=== PATIENT | male | born 1970 | race Caucasian/White ===

== ENCOUNTER → 2019-11-30 10:54 | Outpatient (BNVA) | payer MEDICARE, MEDICAID, SELFPAY | PROVIDERS: Family Provider Internal Medicine; PCP Internal Medicine; Visit Provider Nurse Practitioner Psychiatric/Mental Health | DX: F98.4 Stereotyped movement disorders (principal); F73 Profound intellectual disabilities; Q90.9 Down syndrome, unspecified | CPT/HCPCS: 99214 ==

== ENCOUNTER → 2020-01-11 08:15 | Outpatient (BNVA) | payer MEDICARE, MEDICAID, SELFPAY | PROVIDERS: Family Provider Internal Medicine; PCP Internal Medicine; Visit Provider Nurse Practitioner Psychiatric/Mental Health | DX: F98.4 Stereotyped movement disorders (principal); F73 Profound intellectual disabilities; Q90.9 Down syndrome, unspecified | CPT/HCPCS: 99214 ==

== ENCOUNTER → 2020-02-08 07:38 | Outpatient (BNVA) | payer MEDICARE, MEDICAID, SELFPAY | PROVIDERS: Family Provider Internal Medicine; PCP Internal Medicine; Visit Provider Nurse Practitioner Psychiatric/Mental Health | DX: F98.4 Stereotyped movement disorders (principal); F73 Profound intellectual disabilities; Q90.9 Down syndrome, unspecified | CPT/HCPCS: 99214 ==

== ENCOUNTER → 2020-04-08 07:43 | Outpatient (BNVA) | payer MEDICARE, MEDICAID, SELFPAY | PROVIDERS: Family Provider Internal Medicine; PCP Internal Medicine; Visit Provider Nurse Practitioner Psychiatric/Mental Health | DX: F98.4 Stereotyped movement disorders (principal); F73 Profound intellectual disabilities; Q90.9 Down syndrome, unspecified; Z79.899 Other long term (current) drug therapy | CPT/HCPCS: 99214 ==

== ENCOUNTER → 2020-07-01 07:55 | Outpatient (BNVA) | payer MEDICARE, MEDICAID, SELFPAY | PROVIDERS: Family Provider Internal Medicine; PCP Internal Medicine; Visit Provider Nurse Practitioner Psychiatric/Mental Health | DX: F98.4 Stereotyped movement disorders (principal); F73 Profound intellectual disabilities; Q90.9 Down syndrome, unspecified; F43.12 Post-traumatic stress disorder, chronic | CPT/HCPCS: 99214 ==

== ENCOUNTER → 2020-09-29 08:02 | Outpatient (BNVA) | payer MEDICARE, MEDICAID, SELFPAY | PROVIDERS: Family Provider Internal Medicine; PCP Internal Medicine; Visit Provider Nurse Practitioner Psychiatric/Mental Health | DX: F98.4 Stereotyped movement disorders (principal); F73 Profound intellectual disabilities; Q90.9 Down syndrome, unspecified | CPT/HCPCS: 99213 ==

== ENCOUNTER 2020-12-15 20:57 | Inpatient (IN) | payer MEDICARE, MEDICAID, SELFPAY ==
[2020-12-15 20:58] VITALS: BP 127/48; PULSE 88; RESP 28; TEMP 36.9; O2SAT 86; BMI 36.6
--- NOTE | 2020-12-15 21:03 | XRR_ITS ---
PROCEDURE INFORMATION: Exam: XR Chest Exam date and time: 12/15/2020 9:29 PM Age: 50 years old Clinical indication: Condition or disease; Other: Chf; Fever; Additional info: SOB TECHNIQUE: Imaging protocol: XR of the chest Views: 1 view. COMPARISON: CR Chest 1 [place] [id number] 11/02/2014 11:23 AM FINDINGS: Lungs: There is extensive consolidation of the right lung consistent with a pneumonia. The left lung is clear. Pleural spaces: Unremarkable. No pleural effusion. No pneumothorax. Heart/Mediastinum: The cardiac silhouette is enlarged but unchanged. Bones/joints: Unremarkable. XR/XR chest 1V portable [id number] IMPRESSION: 1. Extensive consolidation of the right lung consistent with pneumonia. 2. Stable cardiomegaly.
--- NOTE | 2020-12-15 21:05 | ED_ITS ---
HPI - SOB/Dyspnea General: Chief Complaint: Fever Stated Complaint: FEVER Time Seen by Provider: 12/15/20 20:57 Source: EMS Mode of arrival: EMS Limitations: altered mental status History of Present Illness: HPI Narrative: 50-year-old male who has history of Down syndrome and is nonverbal and blind. He is here from a local [place] [facility] and has had increased unresponsiveness and shortness of breath. Patient is on 4 L currently and is 96%. No history is available from patient. He has been afebrile. No known sick contacts. Review of Systems General: Reports: ROS unobtainable due to mental status Resp: Reports: dyspnea PFSH ED PFSH: Medical History Blindness Down's syndrome Profound intellectual disabilities Stereotypic movement disorder with self-injurious behavior Ventricular septal defect Social History Smoking and tobacco status: never smoked Physical Exam Const: COMMON NORMALS: negative for patient oriented x3 GENERAL APPEARANCE: ill appearing HENMT: COMMON NORMALS: normocephalic and atraumatic HEAD & SCALP: normocephalic and atraumatic Eye: COMMON NORMALS: Equal, round and reactive pupils present and EOMs intact bilaterally PUPIL: Yes Equal, round and reactive pupils present Neck/C-Spine: COMMON NORMALS: full ROM and supple Chest: COMMONS NORMALS: normal inspection of the chest and normal palpation of entire chest wall Resp: COMMON NORMALS: normal respiratory effort, No retractions and No use of accessory muscles AUSCULTATION: rales Cardio: COMMON NORMALS: regular rate, regular rhythm and No murmurs present (Cardio) RATE: regular rate RHYTHM: regular rhythm HEART SOUNDS: Murmur heart sound present systolic GI: COMMON NORMALS: Normal to inspection, nondistended, normoactive bowel sounds present, Soft to palpation, non-tender and no masses PALPATION: Yes Soft to palpation Extremity: COMMON NORMALS: normal to inspection and full ROM Neuro: COMMON NORMALS: negative for patient oriented x3 Psych: COMMON NORMALS: negative for mental status grossly normal, negative for Normal thought process present, negative for cooperative and negative for normal affect THOUGHT PROCESS: abnormal Skin: COMMON NORMALS: no rashes or lesions noted and no wounds GENERAL SKIN EXAM: no rashes or lesions noted Course Vital Signs: Vital signs: Vital Signs Temperature 98.4 F 12/15/20 20:58 Pulse Rate 88 12/15/20 20:58 Respiratory Rate 28 H 12/15/20 20:58 Blood Pressure 127/48 12/15/20 20:58 Pulse Oximetry 86 L 12/15/20 20:58 MDM - SOB/Dyspnea MDM Narrative: Medical decision making narrative: Patient presents here with dyspnea is found to have a pneumonia here. Patient's vital signs here been normal no signs of septic shock. Patient started on IV antibiotics. Spoke to hospitalist and will admit at this time. Lab Data: Labs: Lab Results 12/15/20 12/15/20 12/15/20 Range/Units 21:09 21:09 21:09 WBC 16.5 H (4.0-10.0) 10^3/ uL RBC 3.22 L (4.1-5.3) 10^6/u L Hgb 11.4 L (11.7-16.6) g/dL Hct 34.4 L (42.0-52.0) % MCV 106.8 H (80-94) fL MCH 35.4 H (28.0-34.0) pg MCHC 33.1 (30.0-36.0) g/dL RDW 13.3 (12.1-15.1) % Plt Count 180 (130-400) 10^3/c mm MPV 9.3 (7.4-10.4) fL Neut % (Auto) 93.6 % Lymph % (Auto) 3.4 % [place] % (Auto) 1.9 % Eos % (Auto) 0.1 % Baso % (Auto) 0.3 % Neut # (Auto) 15.39 H (1.8-7.7) 10^3/u L Lymph # (Auto) 0.6 L (0.8-4.8) 10^3/u L [place] # (Auto) 0.3 (0.2-0.9) 10^3/u L Eos # (Auto) 0.0 (0.0-0.8) 10^3/u L Baso # (Auto) 0.1 (0.0-0.1) 10^3/u L Nucleated RBC % (a uto) 0 % Nucleated RBCs # 0.0 /100WBC PT 14.40 (12.1-14.9) SECO NDS INR 1.09 (0.8-1.2) Specimen Type Sample Site ABG pH (7.35-7.45) ABG pCO2 (35-45) mmHg ABG pO2 (80.0-100.0) mmH g ABG HCO3 (22-26) mmol/L ABG Base Excess (-2.0-2.0) mmol/ L Benton Test Hematocrit (42-52) % Hgb O2 Saturation (95-100) % Carboxyhemoglobin (0.4-20.1) %THgb Methemoglobin (0.4-1.5) % Total Hemoglobin (14-18) g/dL O2 Delivery Device O2 Liters/Min % Bill Poster Installer ID Sodium 139 (136-145) mmol/L Potassium 3.9 (3.5-5.1) mmol/L Chloride 103 (98-107) mmol/L Carbon Dioxide 29 (22-29) mmol/L Anion Gap 10.9 (5-19) BUN 16 (6-20) mg/dL Creatinine 1.0 (0.7-1.2) mg/dL GFR Calculation 78.8 L (90-130) mL/min Glucose 130 H (65-115) mg/dL Calculated Osmolal ity 291 (285-295) mOsm/k g Lactic Acid (0.5-2.2) mmol/L Calcium 7.7 L (8.5-10.5) mg/dL Total Bilirubin 0.2 (0.15-1.2) mg/dL AST 21 (0-40) U/L ALT 17 (0-41) U/L Alkaline Phosphata se 95 (40-130) IU/L Troponin T Baselin e (0-15) ng/L NT-Pro-B Natriuret Pep 3104 H (0-125) pg/mL Total Protein 5.7 L (6.6-8.7) g/dL Albumin 3.0 L (3.5-5.2) g/dL Globulin 2.7 (1.3-4.6) g/dL SARS-CoV-2 Ag (Rap id) (Negative) 12/15/20 12/15/20 12/15/20 Range/Units 21:09 21:20 21:45 WBC (4.0-10.0) 10^3/ uL RBC (4.1-5.3) 10^6/u L Hgb (11.7-16.6) g/dL Hct (42.0-52.0) % MCV (80-94) fL MCH (28.0-34.0) pg MCHC (30.0-36.0) g/dL RDW (12.1-15.1) % Plt Count (130-400) 10^3/c mm MPV (7.4-10.4) fL Neut % (Auto) % Lymph % (Auto) % [place] % (Auto) % Eos % (Auto) % Baso % (Auto) % Neut # (Auto) (1.8-7.7) 10^3/u L Lymph # (Auto) (0.8-4.8) 10^3/u L [place] # (Auto) (0.2-0.9) 10^3/u L Eos # (Auto) (0.0-0.8) 10^3/u L Baso # (Auto) (0.0-0.1) 10^3/u L Nucleated RBC % (a uto) % Nucleated RBCs # /100WBC PT (12.1-14.9) SECO NDS INR (0.8-1.2) Specimen Type Arterial Sample Site Radial, right ABG pH 7.38 (7.35-7.45) ABG pCO2 54.6 H (35-45) mmHg ABG pO2 67.4 L (80.0-100.0) mmH g ABG HCO3 31.9 H (22-26) mmol/L ABG Base Excess 5.4 H (-2.0-2.0) mmol/ L Benton Test Pos Hematocrit 35.8 L (42-52) % Hgb O2 Saturation 90.5 L (95-100) % Carboxyhemoglobin < 0.0 L (0.4-20.1) %THgb Methemoglobin 1.0 (0.4-1.5) % Total Hemoglobin 11.7 L (14-18) g/dL O2 Delivery Device Nc O2 Liters/Min 4.0 % Bill Poster Installer ID [email or web address] Sodium (136-145) mmol/L Potassium (3.5-5.1) mmol/L Chloride (98-107) mmol/L Carbon Dioxide (22-29) mmol/L Anion Gap (5-19) BUN (6-20) mg/dL Creatinine (0.7-1.2) mg/dL GFR Calculation (90-130) mL/min Glucose (65-115) mg/dL Calculated Osmolal ity (285-295) mOsm/k g Lactic Acid 0.7 (0.5-2.2) mmol/L Calcium (8.5-10.5) mg/dL Total Bilirubin (0.15-1.2) mg/dL AST (0-40) U/L ALT (0-41) U/L Alkaline Phosphata se (40-130) IU/L Troponin T Baselin e 33 H (0-15) ng/L NT-Pro-B Natriuret Pep (0-125) pg/mL Total Protein (6.6-8.7) g/dL Albumin (3.5-5.2) g/dL Globulin (1.3-4.6) g/dL SARS-CoV-2 Ag (Rap id) (Negative) 12/15/20 Range/Units 21:45 WBC (4.0-10.0) 10^3/ uL RBC (4.1-5.3) 10^6/u L Hgb (11.7-16.6) g/dL Hct (42.0-52.0) % MCV (80-94) fL MCH (28.0-34.0) pg MCHC (30.0-36.0) g/dL RDW (12.1-15.1) % Plt Count (130-400) 10^3/c mm MPV (7.4-10.4) fL Neut % (Auto) % Lymph % (Auto) % [place] % (Auto) % Eos % (Auto) % Baso % (Auto) % Neut # (Auto) (1.8-7.7) 10^3/u L Lymph # (Auto) (0.8-4.8) 10^3/u L [place] # (Auto) (0.2-0.9) 10^3/u L Eos # (Auto) (0.0-0.8) 10^3/u L Baso # (Auto) (0.0-0.1) 10^3/u L Nucleated RBC % (a uto) % Nucleated RBCs # /100WBC PT (12.1-14.9) SECO NDS INR (0.8-1.2) Specimen Type Sample Site ABG pH (7.35-7.45) ABG pCO2 (35-45) mmHg ABG pO2 (80.0-100.0) mmH g ABG HCO3 (22-26) mmol/L ABG Base Excess (-2.0-2.0) mmol/ L Benton Test Hematocrit (42-52) % Hgb O2 Saturation (95-100) % Carboxyhemoglobin (0.4-20.1) %THgb Methemoglobin (0.4-1.5) % Total Hemoglobin (14-18) g/dL O2 Delivery Device O2 Liters/Min % Bill Poster Installer ID Sodium (136-145) mmol/L Potassium (3.5-5.1) mmol/L Chloride (98-107) mmol/L Carbon Dioxide (22-29) mmol/L Anion Gap (5-19) BUN (6-20) mg/dL Creatinine (0.7-1.2) mg/dL GFR Calculation (90-130) mL/min Glucose (65-115) mg/dL Calculated Osmolal ity (285-295) mOsm/k g Lactic Acid (0.5-2.2) mmol/L Calcium (8.5-10.5) mg/dL Total Bilirubin (0.15-1.2) mg/dL AST (0-40) U/L ALT (0-41) U/L Alkaline Phosphata se (40-130) IU/L Troponin T Baselin e (0-15) ng/L NT-Pro-B Natriuret Pep (0-125) pg/mL Total Protein (6.6-8.7) g/dL Albumin (3.5-5.2) g/dL Globulin (1.3-4.6) g/dL SARS-CoV-2 Ag (Rap id) Negative (Negative) Imaging Data^: CXR: Attestation: I personally reviewed and interpreted this imaging study as follows: My impression: right sided pneumonia EKG Data^: EKG 1: Attestation: I personally reviewed and interpreted this EKG as follows: EKG Interpretation Date: 12/15/20 EKG interpretation time: 21:11 Interpretation: nsr hr [address] or t wave banormalities qrs 104 qtc 417 Discharge Plan Discharge Patient Disposition: Admitted As Inpatient Clinical Impression: Community acquired pneumonia Qualifiers: Laterality: right Lung location: unspecified part of lung Qualified Code(s): J18.9 - Pneumonia, unspecified organism Condition: Stable Coding Level of Care Code ED Inspector Tester Sorter for Chg Fwd Exam Comprehensive
[2020-12-15 21:20] LABS: Basophils # 0.1 10^3/uL (0.0-0.1); Basophils % 0.3 %; Eosinophils % 0.1 %; Hematocrit 34.4 % (42.0-52.0); Hemoglobin 11.4 g/dL (11.7-16.6); Lymphocytes # 0.6 10^3/uL (0.8-4.8); Lymphocytes % 3.4 %; Mean Corpuscular HGB Conc 33.1 g/dL (30.0-36.0); Mean Corpuscular Hemoglobin 35.4 pg (28.0-34.0); Mean Corpuscular Volume 106.8 fL (80-94); Mean Platelet Volume 9.3 fL (7.4-10.4); Monocytes # 0.3 10^3/uL (0.2-0.9); Monocytes % 1.9 %; Neutrophils # 15.39 10^3/uL (1.8-7.7); Neutrophils % 93.6 %; Nucleated Red Blood Cells % 0 %; Platelet Count 180 10^3/cmm (130-400); Red Blood Count 3.22 10^6/uL (4.1-5.3); Red Cell Distribution Width 13.3 % (12.1-15.1); White Blood Count 16.5 10^3/uL (4.0-10.0)
--- NOTE | 2020-12-15 21:28 | PC.NURSE ---
EKG taken and given to Dr. Samano
[2020-12-15 21:31] LABS: INR 1.09 (0.8-1.2)
--- NOTE | 2020-12-15 21:32 | PC.NURSE ---
CHRISTIE Villalobos house caregiver now in room with patient
[2020-12-15 21:38] LABS: Troponin(5th) Baseline 33 ng/L (0-15)
[2020-12-15] MEDS: sodium chloride 0.9% 1,000 ML 999 ML IV (21:46)
[2020-12-15 21:47] LABS: Lactic Sepsis W/Reflex 0.7 mmol/L (0.5-2.2)
[2020-12-15 21:52] LABS: ABG PCO2 54.6 mmHg (35-45); ABG PH Result 7.38 (7.35-7.45); Arterial Blood Gas Hematocrit 35.8 % (42-52); Base Excess ABG 5.4 mmol/L (-2.0-2.0); Blood Gas Allen Test Pos; Blood Gas Sample Site Radial, right; Blood Gas Sample Type Arterial; Carboxyhemoglobin < 0.0 %THgb (0.4-20.1); HCO3 ABG 31.9 mmol/L (22-26); HGB O2 Sat 90.5 % (95-100); Oxygen Device NC; PO2 ABG 67.4 mmHg (80.0-100.0); Total Hemoglobin 11.7 g/dL (14-18)
[2020-12-15 22:02] LABS: Alanine Aminotransferase 17 U/L (0-41); Alkaline Phosphatase 95 IU/L (40-130); Anion Gap 10.9 (5-19); Aspartate Amino Transferase 21 U/L (0-40); Blood Urea Nitrogen 16 mg/dL (6-20); Calcium 7.7 mg/dL (8.5-10.5); Carbon Dioxide 29 mmol/L (22-29); Chloride 103 mmol/L (98-107); Globulin 2.7 g/dL (1.3-4.6); Glomerular Filtration Rate 78.8 mL/min (90-130); Glucose 130 mg/dL (65-115); NT Pro B Type Natriuretic Pept 3104 pg/mL (0-125); Osmolality Calculated 291 mOsm/kg (285-295); Potassium 3.9 mmol/L (3.5-5.1); Sodium 139 mmol/L (136-145); Total Bilirubin 0.2 mg/dL (0.15-1.2); Total Protein 5.7 g/dL (6.6-8.7)
[2020-12-15 22:22] LABS: SARS Covid-2 Antigen Negative (Negative)
[2020-12-15] MEDS: piperacillin-tazobactam 3.375 GM in sodium chloride 0.9% (plus) 50 ML IV (22:39)
[2020-12-15 22:42] VITALS: BP 130/66; PULSE 89; RESP 20; O2SAT 93
[2020-12-15] MEDS: vancomycin 1,000 MG in sodium chloride 0.9% 250 ML 250 MG IV (22:55)
[2020-12-15 23:02] VITALS: BP 170/107; PULSE 87; RESP 26; O2SAT 92
--- NOTE | 2020-12-15 23:03 | ECG_ITS ---
[facility] Test Date: 2020-12-15 Pat Name: John Min Department: Room: 260 Gender: Male Truss Builder: : [id number] Requested By: Koko Samano Order Number: [id number] Darrell MD: Usama Llanos M.D. Measurements Intervals [place] Rate: 83 P: 68 RI: 177 QRS: -24 QRSD: 107 T: 57 QT: 372 QTc: 438 Interpretive Statements SINUS RHYTHM POSSIBLE LEFT ATRIAL ENLARGEMENT [-0.1mV P WAVE IN V1/V2] BORDERLINE LEFT AXIS DEVIATION [QRS AXIS < -20] INCOMPLETE RIGHT BUNDLE BRANCH BLOCK [90+ ms QRS DURATION, TERMINAL R IN V1/V2, 40+ ms S IN I/aVL/V4/V5/V6] ST DEVIATION AND MODERATE T-WAVE ABNORMALITY, CONSIDER ANTERIOR ISCHEMIA [-0.1+ mV T WAVE IN V3/V4] Compared to ECG 11/02/2014 12:09:08 Sinus bradycardia no longer present T-wave abnormality still present Possible ischemia still present Electronically Signed On 12-16-2020 20:21:38 CDT by Usama Llanos M.D. [id number] pa
[2020-12-15 23:11] LABS: Troponin 5 2HR 33.59 ng/L (0-15); Troponin 5 2HR Delta 0.59 ABS# (0-10)
[2020-12-15 23:43] VITALS: BP 119/71; PULSE 88; RESP 22; O2SAT 92
[2020-12-16] VITALS (14 sets, daily range): BP systolic 108–144; BP diastolic 59–80; PULSE 81–92; RESP 18–22; TEMP 36.9–38; O2SAT 90–94
--- NOTE | 2020-12-16 00:14 | PC.NURSE ---
report called to Thi MEDINA on med-surg at 1217
--- NOTE | 2020-12-16 01:29 | P.HP_ITS ---
Providers/Chief Complaint Admitting Physician: Katelyn Walton Primary Care Provider: Jovanni Villalobos DO Chief Complaint: FEVER History of Present Illness 50-year-old male with a past medical history significant for down syndrome with severe cognitive delay, Alzheimer dementia, congenital heart disease in the form of VSD, moderate pulmonary stenosis, chronic right bundle branch block, severe pulmonary hypertension with last known PA pressures of 60, bilateral cataracts with blindness, hypertension, hypothyroidism who is a resident of a [facility] presenting to ER with changes in activity level from baseline as well as hypoxia. Patients is not able to provide any history. At baseline patient is non-verbal. He requires 24/7 care. Per per pet care attendant yesterday he was not active as he normally is. Noted he normally walks with assistance however for the most part laid in bed. Noted to have mild wheezing at which point she checked his oxygen saturation which was around 68%. He is not chronically on oxygen however states he is at baseline around 85%. No recent fever, chills, haylee sea or vomiting. No productive cough. No abdominal discomfort, diarrhea or constipation. After noting his very low oxygen saturation EMS was called and he was placed on supplemental oxygen on route to hospital. Upon arrival his laboratory work up showed a WBC of 16.5, hgb of 11.4, hct of 34.4 and plt count of 180. Sodium of 139, potassium of 3.9, chloride of 103, bicarbonate of 29, BUN of 16, and a creatinine of 1.0. Troponin-t of 33 -> 33.59, Probnp of 31.04, [id number] negative. ABG showed a PH of 7.38, Pco2 of 54.6, pO2 of 67.4, HCO3 of 31.9 while on 4L of o2 via NC. Chest x-ray was performed which appeared to have right sided infiltrates. Patient was then started on vancomycin and zosyn and admitted. Review of Systems General: Reports: ROS unobtainable due to mental status Medications/Allergies Home Medications Medication Instructions Recorded Confirmed Last Taken Type acetaminophen 325 mg tablet 650 mg PO Q4H PRN tab 11/30/19 12/15/20 Unknown History albuterol sulfate 90 mcg/actuation 1 puff INHALATION Q6H PRN gm 11/30/19 12/15/20 Unknown History aerosol inhaler betamethasone dipropionate 0.05 % 1 applic TOPICAL BID PRN 11/30/19 12/15/20 Unknown History topical cream fluticasone propionate 50 2 spray INTRANASAL DAILY@0800 11/30/19 12/15/20 12/15/20 History mcg/actuation nasal spray,suspension guaifenesin 100 mg/5 mL oral liquid 200 mg PO Q6H PRN ml 11/30/19 12/15/20 12/15/20 History ibuprofen 200 mg tablet 200 mg PO Q6H PRN 11/30/19 12/15/20 Unknown History lactulose 10 gram/15 mL oral 10 gm PO DAILY PRN 11/30/19 12/15/20 Unknown History solution levocetirizine 5 mg tablet 5 mg PO DAILY@0800 11/30/19 12/15/20 12/15/20 History levothyroxine 88 mcg capsule 88 mcg PO DAILY@0700 11/30/19 12/15/20 12/15/20 History magnesium hydroxide 400 mg/5 mL 30 ml PO Q4H PRN ml 11/30/19 12/15/20 12/15/20 History oral suspension montelukast 10 mg tablet 10 mg PO DAILY@0800 11/30/19 12/15/20 12/15/20 History nystatin 100,000 unit/gram topical 1 applic TOPICAL DAILY PRN 11/30/19 12/15/20 12/15/20 History powder simethicone 80 mg chewable tablet 80 mg PO .COMPLEX PRN tab 11/30/19 12/15/20 Unknown History triamcinolone acetonide 0.1 % 1 applic TOPICAL BID PRN 11/30/19 12/15/20 Unknown History topical cream docusate sodium 100 mg capsule 100 mg PO BID@08,1999 cap 05/27/20 12/15/20 12/15/20 History polyethylene glycol 3350 17 17 gm PO BID@05/27/20 12/15/20 Unknown History gram/dose oral powder melatonin 3 mg capsule 3 mg PO DIRECTED #30 cap 07/01/20 12/15/20 12/15/20 Rx Celexa 40 mg PO DAILY@0800 12/15/20 12/15/20 12/15/20 History Seroquel XR 150 mg PO DAILY@0812/15/20 12/15/20 12/15/20 History Seroquel XR 400 mg PO DAILY@1700 12/15/20 12/15/20 12/15/20 History carbamide peroxide [Debrox] 2 drp OTIC (EAR) BID PRN 12/15/20 12/15/20 Unknown History famotidine 40 mg PO DAILY PRN 12/15/20 12/15/20 Unknown History ketoconazole See Rx Instructions .ROUTE .COMPLEX 12/15/20 12/15/20 Unknown History sodium phosphates [Fleet Enema] 118 ml TX DAILY PRN 12/15/20 12/15/20 Unknown History trazodone 300 mg PO BEDTIME@199912/15/20 12/15/20 12/15/20 History Allergies Allergy/AdvReac Type Severity Reaction Status Date / Time divalproex sodium Allergy Unknown Unverified 11/30/19 10:22 [From Depakote] PFSH Acute PFSH: Medical History (Updated 12/16/20 @ 02:12 by Katelyn Walton MD) Blindness Down's syndrome Profound intellectual disabilities 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 does not follow commands, unable to open, blindness Chest: Non-labored respiration however wheezing CVS : RRR ABD: Soft NT/ND Skin: Fungal infection ant abd folds. Ext: No edema Data : 12/15/20 21:09 12/15/20 21:09 Micro: Microbiology 12/15/20 21:20 Blood Culture - Preliminary Blood SPECIMEN COLLECTED 12/15/20 21:26 Blood Culture - Preliminary Blood SPECIMEN COLLECTED A&P Assessment and plan (1) Acute respiratory failure with hypoxia: Status: Acute (2) Healthcare-associated pneumonia: Status: Acute Acute respiratory failure with hypoxia due to suspected right lower lobe pneumonia vs Fluid - Will continue current abx regimen - Vancomycin pharmacy to dose - Zosyn 3.375 g IV q8hr - Follow up on blood culture x 2 - Supplemental o2 as needed - Currently on 4L via NC - Follow up on chest x-ray - Duoneb q6hr scheduled - Check pro-calcitonin in am Elevated BMP in setting of Cor pulmonale/severe pulmonary htn/VSD - Lactic acid 0.7 - Repeat in am - Consider ECHO - IVF cautiously if not tolerating po - May need gentle diuresis - Monitor daily weight Downs syndrome/Severe MR - Soft restraints as he is trying to pull o2 - Will give haldol 2 mg IM x 1 - Attempt to remove restraints after - Resumed seroquel 150 mg PO daily am - Verify remainder of meds prior to resuming Hypothyroidism - Levothyroixine 88 mcg po daily GI ppx - Pepcid DVT ppx - Heparin CODE STATUS - Patients sister is the DPOA - per her discussion with ER - Full code - fish warden later stated patient is a DNR however unable to verify with DPOA - To remain a Full code until clarification - No advanced directive on file Attestations Medical Necessity Statement*: Will require over 2 midnight stay in hospital for eval and treatment of respiratory distress with hypoxia, pneumonia requiring IV abx. Time Spent in Patient Care: Greater than 35 minutes (>than 50% of time spent in counselling and/or direct pt care on unit) . Coding Level of Care Code Acute Incinerator Plant Laborer for Marc Kunz Diagnoses Acute respiratory failure with hypoxia J96.01 Healthcare-associated pneumonia J18.9
--- NOTE | 2020-12-16 02:19 | PC.PHAR ---
Pharmacokinetic dosing service Date: 12/16/20 Time: 218 Objective: Patient: John Min Floor: 260-1 Age: 50 yo Serum creatinine: 1.0 mg/dL Height: 62.0 Inches Weight (kg): 90.718 Diagnosis: Relevant medical/social history: Cultures and sensitivities: Other labs: Assessment: IBW (kg): 54.60 Dosing wt(kg): 90.718 Estimated Creatinine clearance (ml/min): 67.5 CRCL method: Cockcroft and Gault using ibw(default). Drug selected: Vancomycin Loading dose (mg): 0 Vd (liters): 81.6 (factor used: 0.9 L/kg) Jose (hr-1): 0.060 Half life (hrs): 11.55 Recommended dose: 1250 mg Interval: 12 hrs Infusion time (hrs): 1.5 Predicted peak (mcg/mL): 28.5 Predicted trough (mcg/mL): 15.18 Total body weight is being used for vancomycin dosing. Renal function is stable [ ] /unstable [ ] Recommendations: Give Vancomycin 1250 mg q 12 hrs with an expected Cpeak of 28.5 mcg/ml and an expected Ctrough of 15.18 mcg/ml Renal dosing of other antibiotics (review renal dosing of other medications and list guidelines here): Thank you for the consult, will continue to follow. Signature: Rosa Cuellar [facility]
[2020-12-16] MEDS: haloperidol inj 5 mg/mL INJ 1 mL 2 MG IM (02:26)
[2020-12-16] MEDS: heparin 5,000 unit/mL INJ 1 mL 5000 UNIT SUBCUT ×2 (02:26→12:56)
[2020-12-16] MEDS: famotidine 20 mg/2 mL INJ IVP ×2 (02:27→13:24)
[2020-12-16 03:20] LABS: Troponin 5 6HR 32.96 ng/L (0-15)
[2020-12-16 03:27] LABS: Troponin 5 6HR Delta -0.04 ng/L (0-12)
[2020-12-16] MEDS: levothyroxine 88 mcg Tablet PO (06:15)
[2020-12-16] MEDS: piperacillin-tazobactam 3.375 GM in sodium chloride 0.9% (plus) 50 ML IV ×3 (06:20→22:37)
--- NOTE | 2020-12-16 09:07 | PC.NURSE ---
This nurse spoke with patient's caregiver, Janet, from [facility]. Janet states patient has had yeast infection to groin area and a spot on his bottom that has been being treated from PCP. Patient's caregiver states patient has to take miralax twice a day or he will become constipated. This scenario writer stated I will discuss this with the DR during heart to heart rounding. Patient's caregiver states she will try to come up this afternoon and possibly bring patient his blanket from home.
[2020-12-16] MEDS: ipratropium-albuterol 3 mL Neb INHALATION ×3 (09:20→21:12)
[2020-12-16] MEDS: montelukast sodium 10 mg Tablet PO (09:21)
[2020-12-16] MEDS: citalopram 20 mg Tablet 40 MG PO (09:22)
[2020-12-16] MEDS: polyethylene glycol 3350 Pkt 17 gm PO ×2 (10:00→18:02)
[2020-12-16] MEDS: quetiapine XR (24HR) 50 mg Tablet 150 MG PO (10:47)
[2020-12-16] MEDS: vancomycin 1,250 MG/250 ML PIGGYBACK 250 MG IV (11:55)
--- NOTE | 2020-12-16 16:50 | P.PN_ITS ---
Subjective Subjective: Interval history: Overnight labs and H&P reviwed. T max 99.2F, no acute interim events, 02 requiremenst stable at 4lpm Medications: Reviewed: Yes Vitals/I&O/Wt Last Vital Signs Temp 99.2 F 12/16/20 15:16 Pulse 86 12/16/20 15:18 Resp 19 H 12/16/20 15:16 BP 144/80 12/16/20 15:16 Pulse Ox 91 12/16/20 15:16 12/16/20 12/16/20 12/16/20 06:59 14:59 22:59 Intake Total 250 / 1300 860 / 860 240 / 1100 Balance 250 / 1300 860 / 860 240 / 1100 Weight last 48 hrs Weight 90.718 kg Physical Exam Narrative: EXAM NARRATIVE: GEN: Awake, alert CVS: S1S2 N RS: CTA B/L except RLL crepts Abd: Soft, nt/nd , bs+ WOOD FENCE INSTALLER: no focal neuro deficits Data : 12/15/20 21:09 12/15/20 21:09 Micro: Microbiology 12/15/20 21:20 Blood Culture - Preliminary Blood SPECIMEN COLLECTED 12/15/20 21:26 Blood Culture - Preliminary Blood SPECIMEN COLLECTED A&P Assessment and plan (1) Acute respiratory failure with hypoxia: Status: Acute (2) Healthcare-associated pneumonia: Status: Acute Acute respiratory failure with hypoxia due to suspected right lower lobe pneumonia vs Fluid - Will continue current abx regimen with zosyn, vanc, add atypical coverage with aziothromycin 500 x 3 d bacterial ag and urine legionella ag MRSA pCR influenza PCR - Follow up on blood culture x 2 - Supplemental o2 as needed - Currently on 4L via NC - Duoneb q6hr scheduled D dimer with am labs to screen for possible PE, LE duplex for same swallow eval to assess for possible aspiration given predominantly right sided infiltrates Elevated BNP in setting of Cor pulmonale/severe pulmonary htn/VSD - ECHO Downs syndrome/Severe MR - Soft restraints as he is trying to pull o2 - Will give haldol 2 mg IM prn Hypothyroidism - Levothyroixine 88 mcg po daily GI ppx - Pepcid DVT ppx - Heparin CODE STATUS Full code for now Attestations Medical Necessity Statement*: need for iv abx for pneumonia, evalute for DVT/PE Coding Level of Care Code Acute Clarifier Operator Helper for Chg Fwd Diagnoses Acute respiratory failure with hypoxia J96.01 Healthcare-associated pneumonia J18.9
[2020-12-16] MEDS: acetaminophen 325 mg Tablet 650 MG PO (20:37)
[2020-12-16] MEDS: trazodone 150 mg Tablet 300 MG PO (20:37)
[2020-12-17] VITALS (13 sets, daily range): BP systolic 113–157; BP diastolic 62–84; PULSE 79–92; RESP 18–20; TEMP 37.5–38.2; O2SAT 90–95
[2020-12-17] MEDS: heparin 5,000 unit/mL INJ 1 mL 5000 UNIT SUBCUT ×2 (00:16→12:14)
[2020-12-17] MEDS: famotidine 20 mg/2 mL INJ IVP ×2 (01:14→12:14)
[2020-12-17 01:27] LABS: Influenza A by IFA Negative (Negative); Influenza B by IFA Negative (Negative)
[2020-12-17] MEDS: ipratropium-albuterol 3 mL Neb INHALATION ×4 (03:20→20:30)
--- NOTE | 2020-12-17 05:00 | USCV_ITS ---
John Min Age: 50 Gender: M : 1970 Exam Date: 12/17/2020 06:19 Ordering Phys: Anita Bolton MD Technologist: Oliver Velazquez Exam Location: [facility] [place] Indication: BP: 128 / 84 HR: 81 Rhythm: Sinus Technical Quality: Adequate MEASUREMENTS (Male / Female) Normal Values 2D ECHO LV Diastolic Diameter PLAX 4.1 cm 4.2 - 5.9 / 3.9 - 5.3 cm LV Systolic Diameter PLAX 3.0 cm IVS Diastolic Thickness 1.0 cm 0.6 - 1.0 / 0.6 - 0.9 cm IVS Systolic Thickness 1.3 cm LVPW Diastolic Thickness 1.1 cm 0.6 - 1.0 / 0.6 - 0.9 cm LVPW Systolic Thickness 1.5 cm LVOT Diameter 2.0 cm LV Ejection Fraction 2D Teich 46.2 % LA Diameter 3.3 cm LA Width 3.9 cm LA Height 4.0 cm RA Width 3.6 cm RA Height 4.8 cm Aorta at Sinotubular Diameter 2.0 cm M-MODE LV Diastolic Diameter MM 4.4 cm 4.2 - 5.9 / 3.9 - 5.3 cm LV Systolic Diameter MM 2.1 cm LV Ejection Fraction MM Teich 83.2 % IVS Diastolic Thickness MM 1.3 cm 0.6 - 1.0 / 0.6 - 0.9 cm IVS Systolic Thickness MM 1.6 cm LVPW Diastolic Thickness MM 1.3 cm 0.6 - 1.0 / 0.6 - 0.9 cm LVPW Systolic Thickness MM 1.6 cm RV Diastolic Diameter MM 2.2 cm Aortic Annulus Diameter 3.5 cm LA Ao Ratio MM 1.0 MV E Point Septal Separation 0.7 cm DOPPLER AV Peak Velocity 253.0 cm/s LVOT Peak Velocity 104.3 cm/s AV Area Cont Eq vti 2.0 cm squared AV Area Cont Eq pk 1.4 cm squared MV Area PHT 5.0 cm squared Mitral E to A Ratio 1.1 MV E' Velocity 61.5 cm/s Mitral E to MV E' Ratio 10.9 Mitral E to LV E' Lateral Ratio 9.6 Mitral E to LV E' Septal Ratio 12.8 TR Peak Velocity 513.7 cm/s TR Peak Gradient 105.5 mmHg TV Peak E Velocity 156.0 cm/s Right Atrial Pressure 15.0 mmHg Pulmonary Artery Systolic Pressu 120.5 mmHg FINDINGS Left Ventricle Normal left ventricular size. LV systolic function is normal with EF of 55%. Interventricular septum is flattened in systole likely from RV pressure overload. Patient has known VSD that is not well visualized on current echo but color doppler suggests the presence. Right Ventricle Right ventricle is hypokinetic and is dilated. Right Atrium The right atrium is normal in size. Left Atrium The left atrium is normal in size. Mitral Valve Grossly normal without significant stenosis or prolapse. There is no mitral regurgitation. Aortic Valve Grossly normal without significant sclerosis or stenosis. There is no aortic regurgitation. Tricuspid Valve Not well visulaized. Patient has elevated gradient across tricuspid valve demonstrating tricuspid stenosis. Severe pulmonary hypertension with RVSP >100mmHg Pulmonic Valve Mild pulmonic stenosis. There is mild pulmonary hypertension Pericardium Trivial pericardial effusion Aorta Normal ascending aorta dimension. CONCLUSIONS LV systolic function is normal with EF of 55% Color doppler is suggestive of VSD Right ventricle is hypokinetic and dilated Tricuspid stenosis and mild pulmonic stenosis is noted Mild pulmonic regurgitation is present Severe pulmonary hypertension is present Comparison with previous echocardiogram can not be done because of limited quality of prior echocardiogram Gilbert Whyte MD (Electronically Signed) Final Date: 21 December 2020 16:33 S
--- NOTE | 2020-12-17 05:00 | USCV_ITS ---
John Min Age: 50 Gender: M : 1970 Exam Date: 12/17/2020 06:42 Ordering Phys: Anita Bolton MD Technologist: Oliver Velazquez [place]am Location[place] [facility] [place] Indication: BIAT EDEMA BED STASIS HISTORY: Lower extremity edema. PROCEDURES: The venous duplex Doppler examination of both lower extremities was performed in the standard fashion. The following venous structures were evaluated: common femoral vein, profunda vein, proximal portion of the greater saphenous vein, superficial femoral vein, and the popliteal vein. In addition, the posterior tibial and peroneal trunk were evaluated. FINDINGS: Normal 2-D Doppler and augmentation and compressibility throughout the lower extremity venous structures. Additional imaging through the proximal calf veins also reveals no thrombus. Limited evaluation of the greater saphenous vein is patent with no thrombus.. The veins were found to be easily compressible with spontaneous blood flow. Non pulsatile flow pattern. CONCLUSIONS No evidence of DVT in the above-mentioned identifiable veins. Dr Usama Llanos MD [facility] (Electronically Signed) Final Date: 18 December 2020 20:23 S
[2020-12-17 05:47] LABS: Basophils % 0.5 %; Eosinophils # 0.1 10^3/uL (0.0-0.8); Eosinophils % 0.7 %; Hematocrit 36.1 % (42.0-52.0); Hemoglobin 11.8 g/dL (11.7-16.6); Lymphocytes # 0.4 10^3/uL (0.8-4.8); Lymphocytes % 5.2 %; Mean Corpuscular HGB Conc 32.7 g/dL (30.0-36.0); Mean Corpuscular Hemoglobin 34.9 pg (28.0-34.0); Mean Corpuscular Volume 106.8 fL (80-94); Mean Platelet Volume 9.4 fL (7.4-10.4); Monocytes # 0.3 10^3/uL (0.2-0.9); Monocytes % 3.1 %; Neutrophils # 7.55 10^3/uL (1.8-7.7); Neutrophils % 89.9 %; Nucleated Red Blood Cells % 0 %; Platelet Count 192 10^3/cmm (130-400); Red Blood Count 3.38 10^6/uL (4.1-5.3); Red Cell Distribution Width 12.9 % (12.1-15.1); White Blood Count 8.4 10^3/uL (4.0-10.0)
[2020-12-17 05:59] LABS: D Dimer 2.42 ug/mIFEU (0-0.59)
[2020-12-17 06:03] LABS: Alanine Aminotransferase 16 U/L (0-41); Albumin Level 2.9 g/dL (3.5-5.2); Alkaline Phosphatase 102 IU/L (40-130); Anion Gap 9.4 (5-19); Aspartate Amino Transferase 25 U/L (0-40); Blood Urea Nitrogen 9 mg/dL (6-20); Calcium 8.6 mg/dL (8.5-10.5); Carbon Dioxide 34 mmol/L (22-29); Chloride 101 mmol/L (98-107); Globulin 3.8 g/dL (1.3-4.6); Glucose 118 mg/dL (65-115); Osmolality Calculated 292 mOsm/kg (285-295); Potassium 3.4 mmol/L (3.5-5.1); Sodium 141 mmol/L (136-145); Total Bilirubin 0.4 mg/dL (0.15-1.2); Total Protein 6.7 g/dL (6.6-8.7)
[2020-12-17 06:05] LABS: Lactic Sepsis W/Reflex 0.7 mmol/L (0.5-2.2)
--- NOTE | 2020-12-17 06:37 | PC.NURSE ---
Echo and venous doppler in progress.
[2020-12-17] MEDS: piperacillin-tazobactam 3.375 GM in sodium chloride 0.9% (plus) 50 ML IV ×3 (06:46→21:58)
[2020-12-17] MEDS: levothyroxine 88 mcg Tablet PO (06:47)
[2020-12-17] MEDS: polyethylene glycol 3350 Pkt 17 gm PO ×2 (07:37→18:45)
[2020-12-17] MEDS: citalopram 20 mg Tablet 40 MG PO (07:37)
[2020-12-17] MEDS: montelukast sodium 10 mg Tablet PO (07:38)
[2020-12-17] MEDS: quetiapine XR (24HR) 50 mg Tablet 150 MG PO (07:38)
[2020-12-17] MEDS: azithromycin 250 mg Tablet 500 MG PO (07:38)
--- NOTE | 2020-12-17 09:43 | PC.CHAP ---
Pastoral Care Encounter/Spiritual Assessment Type of Contact [] Declined independent marketing consultant visit [] Patient/Family/Request visit [] Outpatient visit [] Follow-up visit [] Physician referral [] Code/Alert [x] Routine visit [] Staff referral [] Actively dying [] Patient sleeping [] Family support [] [] Out of room [] Palliative care [] [] Receiving care in room [] Pre-surgical visit [] Trauma [] Long length of stay [] ICU visit [] Other: Relational/Emotional Strength [] Patient feels connected with others/family/visitors/staff [] Distress [] Loneliness/isolation [] Abandonment Spirituality of Patient [] Person of Rosa [] Attends Christianity of their Rosa [] Believes in Prayer [] Reads Bible or Muslim materials [] There are Spiritual issues to be addressed Roller Bearing Inspector Interventions [x] Prayer [] Active listening [] Non-anxious presence [] Spiritual/emotional support [] Crisis/trauma care [] Spiritual counseling [] Bereavement support [] Provided bereavement packet [] Provided Bible/devotional materials [] Provided toy/stuffed animal, coloring book to patient or family member [] Provided Communion [] Anointing/[place] [] Salvation [] Completed spiritual assessment [] Other: Impact on Illness or Injury [] Angry [] Fearful [] Anxious [] Often cries [] Exhaustion [] Unable to work [] Unable to attend yazidi [] Unable to walk/stand [] Unable to read [] Unable to drive [] Unable to eat/drink [] Unable to sleep [] Unable to be with family [] Patient intubated [] Other: Summary Time spent with patient 10 min
[2020-12-17] MEDS: vancomycin 1,250 MG/250 ML PIGGYBACK 250 MG IV ×2 (10:38)
[2020-12-17 10:59] LABS: Vancomycin Trough 12.8 ug/mL (10-15)
[2020-12-17 13:58] LABS: Procalcitonin 1.05 ng/mL (0-0.5)
--- NOTE | 2020-12-17 16:16 | P.PN_ITS ---
Subjective Subjective: Interval history: leukocytosis trending down, continues to be febrile, T-max 100.7, blood culture remains negative to date, MRSA PCR returned negative Medications: Reviewed: Yes Vitals/I&O/Wt Last Vital Signs Temp 99.9 F H 12/17/20 15:51 Pulse 90 12/17/20 16:10 Resp 18 12/17/20 16:02 BP 121/64 12/17/20 15:51 Pulse Ox 94 12/17/20 16:02 12/17/20 12/17/20 12/17/20 06:59 14:59 22:59 Intake Total 300 / 1690 420 / 420 Balance 300 / 1690 420 / 420 Weight last 48 hrs Weight 90.718 kg Physical Exam Narrative: EXAM NARRATIVE: GEN: Awake, nonverbal, moves in bed, soft restraints in place HEENT: Legally blind RS: Reduced air entry right lower lobe, scattered wheezing present Abd: Soft, nt/nd , bs+ PUBLIC HEALTH PROFESSOR: Unable to assess given patient's baseline disability Data : 12/17/20 05:35 12/17/20 05:35 Micro: Microbiology 12/17/20 00:30 MRSA Culture - Final Nose 12/15/20 21:20 Blood Culture - Preliminary Blood NEGATIVE TO DATE 12/15/20 21:26 Blood Culture - Preliminary Blood NEGATIVE TO DATE A&P Assessment and plan (1) Acute respiratory failure with hypoxia: Status: Acute (2) Community acquired pneumonia: Status: Acute Acute respiratory failure with hypoxia due to right lower lobe pneumonia -Currently on treatment with Zosyn vancomycin and azithromycin, discontinue vancomycin today since MRSA PCR returned negative. Continue Zosyn, prefer this over ceftriaxone for now given that aspiration is still a possibility. Azithromycin to maintain atypical coverage bacterial ag and urine legionella ag pending MRSA pCR negative influenza PCR negative Check Covid PCR Blood culture thus far negative to date Supplemental o2 as needed , discussed with caregiver at his alf that patient's baseline oxygen saturation runs at 85%, he supposed to be on supplemental oxygen, however is unable to keep it on due to intellectual disability. Diuresing does not appear to help in this regard. He is also recommended to be on a CPAP, however again is unable to keep it on. Currently on 4L via NC, requirement stable Duoneb q6hr scheduled D-dimer elevated at 2.42, unlikely that he will be able to stay still to complete a CTA PE study. Lower extremity Doppler taken. Check UA Elevated BNP in setting of Cor pulmonale/severe pulmonary htn/VSD - ECHO taken, pending Downs syndrome/Severe MR - Soft restraints as he is trying to pull o2 - Will give haldol 2 mg IM prn Hypothyroidism - Levothyroixine 88 mcg po daily GI ppx - Pepcid DVT ppx - Heparin CODE STATUS Discussed with his sister Katie who is also his guardian, patient's CODE STATUS is DNR/DNI. Attestations Medical Necessity Statement*: Ongoing fever, need for IV antibiotics for treatment of pneumonia, hypoxic respiratory failure Coding Level of Care Code Acute Janitorial Services Supervisor for [facility] Diagnoses Acute respiratory failure with hypoxia J96.01 Community acquired pneumonia J18.9
--- NOTE | 2020-12-17 18:38 | PC.NURSE ---
Straight cath attempted x2. First with 16 Fr, second with 14 Fr coudet. Unsuccessful both times. Dr. Bolton notified.
[2020-12-17] MEDS: potassium chloride ER 20 mEq Tablet 40 MEQ PO (18:45)
--- NOTE | 2020-12-17 19:15 | PC.NURSE ---
CHECKED PT BRIEF AND PT WAS DRY.
[2020-12-17] MEDS: trazodone 150 mg Tablet 300 MG PO (20:33)
[2020-12-18] VITALS (14 sets, daily range): BP systolic 108–127; BP diastolic 58–88; PULSE 72–94; RESP 18–22; TEMP 36.4–37.8; O2SAT 67–95
[2020-12-18] MEDS: heparin 5,000 unit/mL INJ 1 mL 5000 UNIT SUBCUT ×3 (00:18→23:54)
[2020-12-18] MEDS: famotidine 20 mg/2 mL INJ IVP ×2 (00:27→13:17)
--- NOTE | 2020-12-18 00:58 | PC.NURSE ---
REPORTED TEMP TO NURSE.
--- NOTE | 2020-12-18 01:00 | PC.NURSE ---
CHECKED PT BRIEF AND PT IS DRY.
[2020-12-18] MEDS: ipratropium-albuterol 3 mL Neb INHALATION ×4 (03:21→20:33)
--- NOTE | 2020-12-18 04:28 | PC.NURSE ---
Applied male pediatric urine jukebox coin collector and was able to send approximately 5 ml to lab. Urine light yellow and clear.
[2020-12-18 04:34] LABS: Add Urine Microscopic? NO
[2020-12-18 04:46] LABS: Bilirubin Urine Neg (Negative); Blood Urine Neg (Negative); Glucose Urine UA Norm (Normal); Ketones Urine Negative (Negative); Leukocyte Esterase Urine Negative (Negative); Nitrate Urine Negative (Negative); Protein Urine Neg (Negative); Specific Gravity, Urine 1.005 (1.005-1.030); Urine Appearance Clear (CLEAR); Urine Color Yellow (Yellow); Urobilinogen Urine Norm (Negative); pH Urine 7 (5-7)
[2020-12-18] MEDS: piperacillin-tazobactam 3.375 GM in sodium chloride 0.9% (plus) 50 ML IV ×3 (06:11→21:20)
[2020-12-18] MEDS: levothyroxine 88 mcg Tablet PO (06:12)
[2020-12-18 06:16] LABS: Basophils # 0.1 10^3/uL (0.0-0.1); Basophils % 1.2 %; Eosinophils # 0.1 10^3/uL (0.0-0.8); Eosinophils % 2.2 %; Hematocrit 36.4 % (42.0-52.0); Hemoglobin 12.1 g/dL (11.7-16.6); Lymphocytes # 0.6 10^3/uL (0.8-4.8); Lymphocytes % 12.7 %; Mean Corpuscular HGB Conc 33.2 g/dL (30.0-36.0); Mean Corpuscular Hemoglobin 34.7 pg (28.0-34.0); Mean Corpuscular Volume 104.3 fL (80-94); Mean Platelet Volume 9.9 fL (7.4-10.4); Monocytes # 0.4 10^3/uL (0.2-0.9); Monocytes % 8.7 %; Neutrophils # 3.77 10^3/uL (1.8-7.7); Neutrophils % 74.6 %; Nucleated Red Blood Cells % 0 %; Platelet Count 199 10^3/cmm (130-400); Red Blood Count 3.49 10^6/uL (4.1-5.3); Red Cell Distribution Width 12.9 % (12.1-15.1); White Blood Count 5.1 10^3/uL (4.0-10.0)
[2020-12-18 06:43] LABS: Alanine Aminotransferase 15 U/L (0-41); Alkaline Phosphatase 92 IU/L (40-130); Aspartate Amino Transferase 21 U/L (0-40); Blood Urea Nitrogen 6 mg/dL (6-20); Calcium 8.4 mg/dL (8.5-10.5); Carbon Dioxide 35 mmol/L (22-29); Chloride 101 mmol/L (98-107); Globulin 3.6 g/dL (1.3-4.6); Glomerular Filtration Rate 101.9 mL/min (90-130); Glucose 123 mg/dL (65-115); Osmolality Calculated 291 mOsm/kg (285-295); Sodium 141 mmol/L (136-145); Total Bilirubin 0.3 mg/dL (0.15-1.2); Total Protein 6.6 g/dL (6.6-8.7)
[2020-12-18] MEDS: quetiapine XR (24HR) 50 mg Tablet 150 MG PO (08:41)
[2020-12-18] MEDS: azithromycin 250 mg Tablet 500 MG PO (08:41)
[2020-12-18] MEDS: montelukast sodium 10 mg Tablet PO (08:42)
[2020-12-18] MEDS: polyethylene glycol 3350 Pkt 17 gm PO ×2 (08:42→17:09)
[2020-12-18] MEDS: citalopram 20 mg Tablet 40 MG PO (08:42)
[2020-12-18] MEDS: haloperidol inj 5 mg/mL INJ 1 mL 2 MG IVP (13:14)
[2020-12-18 14:13] LABS: Coronavirus Test Green County Not Detected
--- NOTE | 2020-12-18 17:10 | PM.PN ---
Subjective Subjective: Interval history: T-max 100 Fahrenheit over last 24 hours, fever curve appears to be improving, leukocytosis remains resolved, no acute overnight events. Agitated, does not keep oxygen on consistently Medications: Reviewed: Yes Vitals/I&O/Wt Last Vital Signs Temp 97.6 F 12/18/20 16:00 Pulse 78 12/18/20 16:00 Resp 20 H 12/18/20 16:00 BP 108/88 12/18/20 16:00 Pulse Ox 93 12/18/20 16:00 12/18/20 12/18/20 12/18/20 06:59 14:59 22:59 Intake Total 1529 370 / 370 Output Total 200 / 200 Balance 1529 170 / 170 Physical Exam Narrative: EXAM NARRATIVE: GEN: Awake, nonverbal, moves in bed, soft restraints in place HEENT: Legally blind RS: Reduced air entry right lower lobe, scattered wheezing present Abd: Soft, nt/nd , bs+ ACCOUNTING MANAGER CONTROLLER: Unable to assess given patient's baseline disability Data : 12/18/20 05:25 12/18/20 05:25 Micro: Microbiology 12/17/20 00:30 MRSA Culture - Final Nose A&P Assessment and plan (1) Acute respiratory failure with hypoxia: Status: Acute (2) Community acquired pneumonia: Status: Acute Acute respiratory failure with hypoxia due to right lower lobe pneumonia Continue Zosyn and azithromycin, antibiotic day 3 today bacterial ag and urine legionella ag not obtained is unable to get urine specimen, patient could not be straight cath as it makes him extremely agitated MRSA pCR negative influenza PCR negative Covid PCR negative Blood culture thus far negative to date Supplemental o2 as needed , discussed with caregiver at his [facility] that patient's baseline oxygen saturation runs at 85%, he supposed to be on supplemental oxygen, however is unable to keep it on due to intellectual disability. Diuresing does not appear to help in this regard. He is also recommended to be on a CPAP, however again is unable to keep it on. Currently on 4L, changed to oxygen mask better patient tolerance Duoneb q6hr scheduled D-dimer elevated at 2.42, unlikely that he will be able to stay still to complete a CTA PE study. Lower extremity Doppler results pending Elevated BNP in setting of Cor pulmonale/severe pulmonary htn/VSD - ECHO taken, pending Downs syndrome/Severe MR - Soft restraints as he is trying to pull o2 -Haldol as needed added Hypothyroidism - Levothyroixine 88 mcg po daily GI ppx - Pepcid DVT ppx - Heparin CODE STATUS Discussed with his sister Katie who is also his guardian, patient's CODE STATUS is DNR/DNI. Attestations Medical Necessity Statement*: Ongoing need for IV antibiotics, awaiting afebrile at least 24 hours prior to safe discharge Coding Level of Care Code Acute Quantitative Research Analyst for [employer] Diagnoses Acute respiratory failure with hypoxia J96.01 Community acquired pneumonia J18.9
--- NOTE | 2020-12-18 19:05 | PC.NURSE ---
Patient's clinical team manager from [employer] is Janet she has been with the patient since he was 6. You can call her day or night. [phone].
--- NOTE | 2020-12-18 19:31 | PC.NURSE ---
Report to Janet MEDINA at this time.
[2020-12-18] MEDS: trazodone 150 mg Tablet 300 MG PO (21:15)
[2020-12-19] VITALS (13 sets, daily range): BP systolic 108–127; BP diastolic 69–87; PULSE 70–87; RESP 18–20; TEMP 36.4–37.3; O2SAT 88–94
[2020-12-19] MEDS: famotidine 20 mg/2 mL INJ IVP ×2 (01:16→14:49)
[2020-12-19] MEDS: ipratropium-albuterol 3 mL Neb INHALATION ×4 (03:27→20:31)
[2020-12-19] MEDS: levothyroxine 88 mcg Tablet PO (06:47)
[2020-12-19] MEDS: piperacillin-tazobactam 3.375 GM in sodium chloride 0.9% (plus) 50 ML IV ×3 (06:49→21:41)
[2020-12-19] MEDS: citalopram 20 mg Tablet 40 MG PO (08:44)
[2020-12-19] MEDS: azithromycin 250 mg Tablet 500 MG PO (08:44)
[2020-12-19] MEDS: montelukast sodium 10 mg Tablet PO (08:44)
[2020-12-19] MEDS: quetiapine XR (24HR) 50 mg Tablet 150 MG PO (08:47)
[2020-12-19] MEDS: haloperidol inj 5 mg/mL INJ 1 mL 2 MG IVP (10:24)
[2020-12-19] MEDS: heparin 5,000 unit/mL INJ 1 mL 5000 UNIT SUBCUT (14:50)
--- NOTE | 2020-12-19 15:06 | DCPLANNER ---
Pg 2 of IM updated, phoned Rita @ [place] where pt lives and explained it to her. She is glad to know that information. Copy left in pt's room as agreed.
--- NOTE | 2020-12-19 16:11 | P.PN_ITS ---
Subjective Subjective: Interval history: Fever curve improving, afebrile over last 24 hours, T-max 99.2, leukocytosis remains resolved. Continues to be agitated, pulling of mask, however changed to oxygen mask appears to agitate him less. Medications: Reviewed: Yes Vitals/I&O/Wt Last Vital Signs Temp 99.2 F 12/19/20 11:44 Pulse 71 12/19/20 15:15 Resp 20 H 12/19/20 15:10 BP 117/87 12/19/20 11:44 Pulse Ox 92 12/19/20 15:10 12/19/20 12/19/20 12/19/20 06:59 14:59 22:59 Intake Total 170 / 890 650 / 650 Balance 170 / 690 650 / 650 Physical Exam Narrative: EXAM NARRATIVE: GEN: Awake, nonverbal, moves in bed, soft restraints in place HEENT: Legally blind RS: Reduced air entry right lower lobe, scattered wheezing present Abd: Soft, nt/nd , bs+ DRAFTER CASTINGS: Unable to assess given patient's baseline disability Data : 12/18/20 05:25 12/18/20 05:25 A&P Assessment and plan (1) Acute respiratory failure with hypoxia: Status: Acute (2) Community acquired pneumonia: Status: Acute Acute respiratory failure with hypoxia due to right lower lobe pneumonia Continue Zosyn and azithromycin, antibiotic day 4 today, patient is unlikely to tolerate switch to oral antibiotics therefore would prefer to complete course in the hospital with 5 days of IV antibiotics bacterial ag and urine legionella ag not obtained is unable to get urine specimen, patient could not be straight cath as it makes him extremely agitated MRSA pCR negative influenza PCR negative Covid PCR negative Blood culture thus far negative to date Supplemental o2 as needed , discussed with caregiver at his snf that patient's baseline oxygen saturation runs at 85%, he supposed to be on supplemental oxygen, however is unable to keep it on due to intellectual disability. Diuresing does not appear to help in this regard. He is also recommended to be on a CPAP, however again is unable to keep it on. Currently on 4L, changed to oxygen mask better patient tolerance Duoneb q6hr scheduled D-dimer elevated at 2.42, unlikely that he will be able to stay still to complete a CTA PE study. Lower extremity Doppler without evidence of DVT Elevated BNP in setting of Cor pulmonale/severe pulmonary htn/VSD Echocardiogram still pending Downs syndrome/Severe MR - Soft restraints as he is trying to pull o2 -Haldol as needed added Hypothyroidism - Levothyroixine 88 mcg po daily GI ppx - Pepcid DVT ppx - Heparin CODE STATUS DNR/DNI Attestations Medical Necessity Statement*: Clinically improving, complete IV antibiotic cou rse with 5 days of Zosyn and azithromycin, likely upcoming discharge in the next 24 hours Coding Level of Care Code Acute Scientific Software Engineer for [employer] Diagnoses Acute respiratory failure with hypoxia J96.01 Community acquired pneumonia J18.9
[2020-12-19] MEDS: polyethylene glycol 3350 Pkt 17 gm PO (17:53)
[2020-12-19] MEDS: trazodone 150 mg Tablet 300 MG PO (20:24)
--- NOTE | 2020-12-19 21:01 | PC.NURSE ---
SHIFT SUMMARY PT HAS DONE WELL TODAY. PT WAS RELEASED FROM [facility]TS MULTIPLE TIMES PER HOUR THIS MORNING AND THEN EVERY HOUR AFTER LUNCH UNTIL THE END OF SHIFT. THE LAST TIME THIS NURSE REMOVED RESTRAINTS WAS AROUND 1830. PT WAS ASSISTED TO CHAIR THIS MORNING. PT DID WELL IN THE CHAIR WITHOUT RESTRAINTS FOR ABOUT 15 MINUTES. PT THEN STARTED TO GET AGITATED AND BEGAN TAKING OFF HIS OXY MASK. PT WOULD NOT LEAVE MASK ON WITH REDIRECTION AND EDUCATION ON THE IMPORTANCE OF HIS OXYGEN. PT WAS ASSISTED BACK TO BED WHERE HE CONTINUED TO REMOVE HIS OXY MASK. PT WAS PLACED BACK IN RESTRAINTS. WHEN PT WAS RELEASED FROM RESTRAINTS AROUND 1000 PT BEGAN THROWING HIS PILLOWS, REMOVING HIS OXY MASK, PULLING AT IV, AND TRYING TO GET OUT OF BED. PT COULD NOT BE CALMED DOWN. PT WAS PUT BACK INTO RESTRAINTS AND HALDOL 2MG IVP WAS GIVEN PER ORDER. PT HAS BEEN DOING WELL REMAINDER OF SHIFT.
[2020-12-20] VITALS (12 sets, daily range): BP systolic 107–134; BP diastolic 66–81; PULSE 61–90; RESP 16–20; TEMP 35.8–36.9; O2SAT 88–96
[2020-12-20] MEDS: famotidine 20 mg/2 mL INJ IVP ×2 (01:57→15:00)
[2020-12-20] MEDS: ipratropium-albuterol 3 mL Neb INHALATION ×4 (03:42→20:15)
[2020-12-20] MEDS: piperacillin-tazobactam 3.375 GM in sodium chloride 0.9% (plus) 50 ML IV ×3 (06:44→21:46)
[2020-12-20] MEDS: levothyroxine 88 mcg Tablet PO (06:44)
[2020-12-20] MEDS: montelukast sodium 10 mg Tablet PO (08:09)
[2020-12-20] MEDS: citalopram 20 mg Tablet 40 MG PO (08:09)
[2020-12-20] MEDS: quetiapine XR (24HR) 50 mg Tablet 150 MG PO (08:10)
[2020-12-20] MEDS: polyethylene glycol 3350 Pkt 17 gm PO ×2 (08:10→17:08)
[2020-12-20] MEDS: haloperidol inj 5 mg/mL INJ 1 mL 2 MG IVP (09:11)
--- NOTE | 2020-12-20 09:20 | PC.NURSE ---
pt attempting to hit self with hand. pt taking off oxygen mask several times. pt very agitated. administered 2mg of haldol ivp.
--- NOTE | 2020-12-20 10:42 | PM.DCS ---
Discharge Providers Date of Admission: 12/16/20 00:07 Date of Discharge: December 20, 2020 Attending Provider at Admission: Katelyn Walton Attending Provider at Discharge: Anita Bolton MD Primary Care Provider: Jovanni Villalobos DO Diagnoses at Discharge Discharge Diagnosis (1) Acute respiratory failure with hypoxia: Status: Acute (2) Community acquired pneumonia: Status: Acute Reason for Visit Reason for Visit: FEVER Hospital Course Hospital Course 50-year-old male with a past medical history significant for down syndrome with severe cognitive delay, Alzheimer dementia, congenital heart disease in the form of VSD, moderate pulmonary stenosis, chronic right bundle branch block, severe pulmonary hypertension with last known PA pressures of 60, bilateral cataracts with blindness, hypertension, hypothyroidism who is a resident of a senior care presenting to ER with changes in activity level from baseline as well as hypoxia. Upon arrival his laboratory work up showed a WBC of 16.5, hgb of 11.4, hct of 34.4 and plt count of 180. Sodium of 139, potassium of 3.9, chloride of 103, bicarbonate of 29, BUN of 16, and a creatinine of 1.0. Troponin-t of 33 -> 33.59, Probnp of 31.04, [id number] negative. ABG showed a PH of 7.38, Pco2 of 54.6, pO2 of 67.4, HCO3 of 31.9 while on 4L of o2 via NC. Chest x-ray was performed which appeared to have right sided infiltrates. Patient was then started on vancomycin and zosyn and admitted. Hospital course as below; (1) Acute on chronic respiratory failure with hypoxia: (2) Community acquired pneumonia: Acute respiratory failure with hypoxia due to right lower lobe pneumonia Received treatment with Zosyn and azithromycin for total 5 days Vancomycin discontinued once MRSA PCR returned negative bacterial ag and urine legionella ag not obtained is unable to get urine specimen, patient could not be straight cath as it makes him extremely agitated. No other indication for Diez placement, therefore deferred to avoid UTI. MRSA PCR negative influenza PCR negative Covid PCR negative Blood culture negtaive Supplemental o2 as needed , discussed with caregiver at his senior care that patient's baseline oxygen saturation runs at 85%, he supposed to be on supplemental oxygen, however is unable to keep it on due to intellectual disability. He is also recommended to be on a CPAP, however again is unable to keep it on. Currently on baseline requirement of 4L, changed to oxygen mask better patient tolerance Leukocytosis resolved, afberile for 48 hrs now. D-dimer elevated at 2.42, unlikely that he will be able to stay still to complete a CTA PE study. Lower extremity Doppler without evidence of DVT, low suspicion for PE as clinically improved. Elevated BNP in setting of Cor pulmonale/severe pulmonary htn/VSD Echocardiogram still pending Downs syndrome/Severe MR - Soft restraints as he is trying to pull o2 -Haldol as needed added Hypothyroidism - Levothyroixine 88 mcg po daily continued Patient being discharged today in stable condition, back at baseline Physical Exam Narrative: EXAM NARRATIVE: GEN: Awake, non verbal, agitated CVS: S1S2 N RS: CTA B/L anteriorly Abd: Soft, nt/nd , bs+ Discharge Data Data Completed and Pending: Completed Studies During Hospitalization Category Date Time Status XR chest 1V gabriel ble [id number] Urgent Exams 12/15/20 21:03 [place] [id number] Routin e Ultrasound 12/17/20 05:00 Completed Pending at discharge Category Date Time Status Bacterial Antigen Routine Lab 12/16/20 16:48 Uncollected Blood Culture Sta t Lab 12/15/20 21:20 Results Legionella Antige n STAT Routine Lab 12/16/20 16:48 Uncollected CV echo complete* [id number] Routine Ultrasound 12/17/20 05:00 Taken Addt'l Data from Hospital Stay: Laboratory Results WBC 5.1 10^3/uL (4.0- 10.0) 12/18/20 05:25 RBC 3.49 10^6/uL (4.1 -5.3) L 12/18/20 05:25 Hgb 12.1 g/dL (11.7-1 6.6) 12/18/20 05:25 Hct 36.4 % (42.0-52.0 ) L 12/18/20 05:25 MCV 104.3 fL (80-94) H 12/18/20 05:25 MCH 34.7 pg (28.0-34. 0) H 12/18/20 05:25 MCHC 33.2 g/dL (30.0-3 6.0) 12/18/20 05:25 RDW 12.9 % (12.1-15.1 ) 12/18/20 05:25 Plt Count 199 10^3/cmm (130 -400) 12/18/20 05:25 MPV 9.9 fL (7.4-10.4) 12/18/20 05:25 Neut % (Auto) 74.6 % 12/18/20 05:25 Lymph % (Auto) 12.7 % 12/18/20 05:25 [place] % (Auto) 8.7 % 12/18/20 05:25 Eos % (Auto) 2.2 % 12/18/20 05:25 Baso % (Auto) 1.2 % 12/18/20 05:25 Neut # (Auto) 3.77 10^3/uL (1.8 -7.7) 12/18/20 05:25 Lymph # (Auto) 0.6 10^3/uL (0.8- 4.8) L 12/18/20 05:25 [place] # (Auto) 0.4 10^3/uL (0.2- 0.9) 12/18/20 05:25 Eos # (Auto) 0.1 10^3/uL (0.0- 0.8) 12/18/20 05:25 Baso # (Auto) 0.1 10^3/uL (0.0- 0.1) 12/18/20 05:25 Nucleated RBC % (a uto) 0 % 12/18/20 05:25 Nucleated RBCs # 0.0 /100WBC 12/18/20 05:25 PT 14.40 SECONDS (12 .1-14.9) 12/15/20 21:09 INR 1.09 (0.8-1.2) 12/15/20 21:09 D-Dimer 2.42 ug/mIFEU (0- 0.59) H 12/17/20 05:35 Specimen Type Arterial 12/15/20 21:45 Sample Site Radial, right 12/15/20 21:45 ABG pH 7.38 (7.35-7.45) 12/15/20 21:45 ABG pCO2 54.6 mmHg (35-45) H 12/15/20 21:45 ABG pO2 67.4 mmHg (80.0-1 00.0) L 12/15/20 21:45 ABG HCO3 31.9 mmol/L (22-2 6) H 12/15/20 21:45 ABG Base Excess 5.4 mmol/L (-2.0- 2.0) H 12/15/20 21:45 [place] Test Pos 12/15/20 21:45 Hematocrit 35.8 % (42-52) L 12/15/20 21:45 Hgb O2 Saturation 90.5 % (95-100) L 12/15/20 21:45 Carboxyhemoglobin < 0.0 %THgb (0.4- 20.1) L 12/15/20 21:45 Methemoglobin 1.0 % (0.4-1.5) 12/15/20 21:45 Total Hemoglobin 11.7 g/dL (14-18) L 12/15/20 21:45 O2 Delivery Device Nc 12/15/20 21:45 O2 Liters/Min 4.0 % 12/15/20 21:45 Sample Tester Grinder ID [email or web address] 12/15/20 21:45 Sodium 141 mmol/L (136-1 45) 12/18/20 05:25 Potassium 4.0 mmol/L (3.5-5 .1) 12/18/20 05:25 Chloride 101 mmol/L (98-10 7) 12/18/20 05:25 Carbon Dioxide 35 mmol/L (22-29) H 12/18/20 05:25 Anion Gap 9.0 (5-19) 12/18/20 05:25 BUN 6 mg/dL (6-20) 12/18/20 05:25 Creatinine 0.8 mg/dL (0.7-1. 2) 12/18/20 05:25 GFR Calculation 101.9 mL/min (90- 130) 12/18/20 05:25 Glucose 123 mg/dL (65-115 ) H 12/18/20 05:25 Calculated Osmolal ity 291 mOsm/kg (285- 295) 12/18/20 05:25 Lactic Acid 0.7 mmol/L (0.5-2 .2) 12/17/20 05:35 Calcium 8.4 mg/dL (8.5-10 .5) L 12/18/20 05:25 Total Bilirubin 0.3 mg/dL (0.15-1 .2) 12/18/20 05:25 AST 21 U/L (0-40) 12/18/20 05:25 ALT 15 U/L (0-41) 12/18/20 05:25 Alkaline Phosphata se 92 IU/L (40-130) 12/18/20 05:25 Troponin T Baselin e 33 ng/L (0-15) H 12/15/20 21:09 Troponin T 120 Min shannon 33.59 ng/L (0-15) H 12/15/20 22:49 Delta Troponin T 0.59 ABS# (0-10) 12/15/20 22:49 Troponin T Hi Sens 6Hr 32.96 ng/L (0-15) H 12/16/20 02:45 Troponin T Hi Sens 6Hr Delta -0.04 ng/L (0-12) L 12/16/20 02:45 NT-Pro-B Natriuret Pep 3104 pg/mL (0-125 ) H 12/15/20 21:09 Total Protein 6.6 g/dL (6.6-8.7 ) 12/18/20 05:25 Albumin 3.0 g/dL (3.5-5.2 ) L 12/18/20 05:25 Globulin 3.6 g/dL (1.3-4.6 ) 12/18/20 05:25 Procalcitonin 1.05 ng/mL (0-0.5 ) H 12/17/20 05:35 Urine Color Yellow (Yellow) 12/17/20 04:00 Urine Appearance Clear (CLEAR) 12/17/20 04:00 Urine pH 7 (5-7) 12/17/20 04:00 Ur Specific Gravit y 1.005 (1.005-1.0 30) 12/17/20 04:00 Urine Protein Neg (Negative) 12/17/20 04:00 Urine Glucose (UA) Norm (Normal) 12/17/20 04:00 Urine Ketones Negative (Negati ve) 12/17/20 04:00 Urine Blood Neg (Negative) 12/17/20 04:00 Urine Nitrate Negative (Negati ve) 12/17/20 04:00 Urine Bilirubin Neg (Negative) 12/17/20 04:00 Urine Urobilinogen Norm mg/dL (Negat angel) 12/17/20 04:00 Ur Leukocyte Vanessa ase Negative (Negati ve) 12/17/20 04:00 Vancomycin Trough 12.8 ug/mL (10-15 ) 12/17/20 10:15 Nasal/Oral COVID-1 9 PCR Not detected 12/17/20 18:35 Influenza Type A A g Negative (Negati ve) 12/17/20 00:30 Influenza Type B A g Negative (Negati ve) 12/17/20 00:30 SARS-CoV-2 Ag (Rap id) Negative (Negati ve) 12/15/20 21:45 Impressions Chest X-Ray 12/15/20 21:03 IMPRESSION: 1. Extensive consolidation of the right lung consistent with pneumonia. 2. Stable cardiomegaly. Vitals: Last Vital Signs Temp 98.5 F 12/20/20 07:46 Pulse 90 12/20/20 09:49 Resp 18 12/20/20 09:49 BP 115/67 12/20/20 07:46 Pulse Ox 92 12/20/20 09:49 Discharge Plan Discharge Patient Disposition: [facility] Condition: Stable Prescriptions: New levofloxacin 750 mg tablet 750 mg PO DAILY 2 Days Qty: 2 RF: 0 Continued levothyroxine 88 mcg capsule 88 mcg PO DAILY@0700 RF: 0 levocetirizine [Xyzal] 5 mg tablet 5 mg PO DAILY@0800 RF: 0 montelukast [Singulair] 10 mg tablet 10 mg PO DAILY@0800 RF: 0 fluticasone propionate [Allergy Relief (fluticasone)] 50 mcg/actuation spray,suspension 2 spray INTRANASAL DAILY@0800 RF: 0 simethicone 80 mg tablet,chewable 80 mg PO .COMPLEX PRN (Reason: EXCESS GAS) RF: 0 acetaminophen [Tylenol] 325 mg tablet 650 mg PO Q4H PRN (Reason: Pain) RF: 0 guaifenesin [Adult Tussin Chest Congestion] 100 mg/5 mL liquid 200 mg PO Q6H PRN (Reason: Cough) RF: 0 ibuprofen 200 mg tablet 200 mg PO Q6H PRN (Reason: Fever) RF: 0 lactulose 10 gram/15 mL solution 10 gm PO DAILY PRN (Reason: constipation) RF: 0 magnesium hydroxide [Milk of Magnesia] 400 mg/5 mL suspension 30 ml PO Q4H PRN (Reason: Constipation) RF: 0 albuterol sulfate [Ventolin HFA] 90 mcg/actuation HFA aerosol inhaler 1 puff INHALATION Q6H PRN (Reason: COUGH/WHEEZING) RF: 0 triamcinolone acetonide 0.1 % cream 1 applic TOPICAL BID PRN (Reason: UNKNOWN) RF: 0 betamethasone dipropionate 0.05 % cream 1 applic TOPICAL BID PRN (Reason: Rash) RF: 0 nystatin 100,000 unit/gram powder 1 applic TOPICAL DAILY PRN (Reason: Rash) RF: 0 docusate sodium [Colace] 100 mg capsule 100 mg PO BID@799,1999 RF: 0 polyethylene glycol 3350 [Miralax] 17 gram/dose powder 17 gm PO BID@799,1999 RF: 0 melatonin 3 mg capsule 3 mg PO DIRECTED Qty: 30 RF: 3 ketoconazole 2 % Shampoo See Rx Instructions .ROUTE .COMPLEX RF: 0 famotidine 40 mg Tablet 40 mg PO DAILY PRN (Reason: Indigestion) RF: 0 Fleet Enema 19-7 gram/118 mL Enema 118 ml IA DAILY PRN (Reason: Constipation) RF: 0 Debrox 6.5 % Drops 2 drp otic (ear) BID PRN (Reason: WAX BUILDUP) RF: 0 Celexa 40 mg tablet 40 mg PO DAILY@0800 RF: 0 trazodone 300 mg tablet 300 mg PO BEDTIME@1999 RF: 0 Seroquel XR 400 mg tablet extended release 24 hr 400 mg PO DAILY@1700 RF: 0 Discontinued quetiapine [Seroquel XR] 150 mg tablet extended release 24 hr 150 mg PO DAILY@0800 RF: 0 Discharge Orders: Discharge Order (Routine); Ordered 12/20/20 Ordered By: Anita Bolton Referrals: Reyna Dow FNP [Staff Physician] - 12/26/20 9:30 am Discharge Diet: Usual diet Discharge Activity: Resume usual activity Patient Instructions: Opioid Safety Discharge Attestations Time Spent in Discharge Care*: greater than 30 min Specific Discharge Activities: discussing with vocational case manager/social workers/dc planners and documenting/other paperwork Quality Metrics Clinical Quality Measures During this hospital stay, did patient experience: None Coding Level of Care Code Acute Chg FW DC note Diagnoses Acute respiratory failure with hypoxia J96.01 Community acquired pneumonia J18.9
[2020-12-20] MEDS: LORazepam 2 mg/mL INJ 1 mL 1 MG IVP ×2 (16:21→22:51)
[2020-12-20] MEDS: enoxaparin 40 mg/0.4 mL Syringe SUBCUT (16:21)
[2020-12-21] VITALS (10 sets, daily range): BP systolic 106–128; BP diastolic 51–88; PULSE 63–95; RESP 16–19; TEMP 36.6–37.1; O2SAT 72–95
[2020-12-21] MEDS: famotidine 20 mg/2 mL INJ IVP (01:42)
--- NOTE | 2020-12-21 03:03 | PC.NURSE ---
due to pt somnolent state at beginning of shift, restraints were removed while he rested quietly. When patinet started getting agitated as well as pulling at mask, the restraints were reapplied around 2200. Restraints were removed again for ROM around midnight, and most recently again approx 0300. Pt tolerated well. Brief checked and currently dry. Pt currently very fidgety but otherwise calm. Sitter at bedside.
[2020-12-21] MEDS: ipratropium-albuterol 3 mL Neb INHALATION ×2 (03:11→08:15)
[2020-12-21] MEDS: haloperidol inj 5 mg/mL INJ 1 mL 2 MG IVP (03:36)
[2020-12-21] MEDS: LORazepam 2 mg/mL INJ 1 mL 1 MG IVP (05:35)
[2020-12-21] MEDS: piperacillin-tazobactam 3.375 GM in sodium chloride 0.9% (plus) 50 ML IV (05:43)
[2020-12-21] MEDS: levothyroxine 88 mcg Tablet PO (06:01)
--- NOTE | 2020-12-21 06:10 | PC.NURSE ---
range of motion preformed on patient. tolerated okay.
--- NOTE | 2020-12-21 08:31 | PC.NURSE ---
sister Katie Bob called this am stating that she was hoping to talk to Dr. Bolton, she said she can be reached at her cell [phone] until 10am then she can be reached at her place of work [phone].
[2020-12-21] MEDS: quetiapine XR (24HR) 50 mg Tablet 150 MG PO (12:03)
[2020-12-21] MEDS: montelukast sodium 10 mg Tablet PO (12:03)
[2020-12-21] MEDS: citalopram 20 mg Tablet 40 MG PO (12:04)
--- NOTE | 2020-12-21 13:04 | PC.NURSE ---
pt oxygen discontinued. pt oxygen level is 65 percent on room air. pt resting comfortably in bed.
--- NOTE | 2020-12-21 15:14 | PC.NURSE ---
pt oxygen between 70- 75. pt resting comfortably in bed.
--- NOTE | 2020-12-21 17:08 | PC.NURSE ---
Patient is on comfort care.
--- NOTE | 2020-12-21 18:02 | PM.PN ---
Subjective Subjective: Interval history: Patient's discharge could not be completed yesterday due to events noted in the chart yesterday. I had an extensive discussion with patient's sister and guardian Katie this morning. currently we are at the situation where patient has been treated for pneumonia has had clinical improvement in terms of being afebrile, leukocytosis and sepsis now resolved. He continues to require supplemental O2. His recent baseline oxygen saturation have been 85% at the assisted, unknown why this is the case, but possibly related to CHF,sleep apnea and pulmonary hypertension per history and chart review. He has a known VSD with [id number] shunting. Possible that shunt reversal could have started taking place due to elevated right-sided pressures recently, shunt function could not be assessed on current Echo due to lack of color Doppler, however noted to have severe pulmonary hypertension, tricuspid stenosis, pulmonic regurgitation and pulmonic stenosis therefore the latter does remain a possibility. Patient continues to require supplemental O2, however putting on NC or oxymask makes him extremely agitated, he attempts to pull off his oxygen, which is similar to what he was doing at the assisted. He is unable to communicate, is non verbal at baseline. We have had to restrain him during the course of admission and use prn Haldol to sedate him enough to be able to keep oxygen on him. This however at this time is incompatible with his overall goals of care. While his acute issues are now resolved, chronic hypoxic respiratory failure continues to persist, worsening in oxygen saturation could be contributed by pneumonia at this present time, and it is not possible to predict at what point he may return to his baseline oxygen saturation, if at all. To be able to keep him on supplemental O2 would require continued restraints and sedation, however titrating his oxygen to achieve a saturation of 85% or above is not going to add to any long-term meaningful quality of life. He has significant underlying comorbidities which are going to continue to persist and worsen over time, perhaps even in the next few weeks to months. Per discussion with Katie, given his goals of care to maximize comfort and not pursue any aggressive measures, it would be prudent to discontinue all restraints, discontinue Haldol, discontinue supplemental O2 if it agitates him and allow nature to take its course. After this discussion, we discontinued all of the above, patient saturation is currently ranging around 75% on room air, he appears very comfortable, not tachypneic, no longer agitated, cooperating with p.o. intake, cooperating with being washed and turned, able to sit up and lie back down with assistance and cueing with touch. Should his 02 saturation continue to drop and he develops air hunger, will transition him to exclusive comfort care measures and allow nature to take its course. He has been a assisted resident for several years, is cared for by caregivers who have developed a way of communicating with him with tactile and verbal cues, his guardian is happy with the care provided at assisted, therefore transitioning him to senior care at this point is likely going to be of more discomfort to him without adding any additional benefits. Recommend discharge back to assisted with hospice and palliative measures, goal to minimize readmissions to the hospital and focus on symptom management. His sister is in agreement with this plan. Hospice referral entered. Medications: Reviewed: Yes Vitals/I&O/Wt Last Vital Signs Temp 98.7 F 12/21/20 17:00 Pulse 78 12/21/20 17:00 Resp 16 12/21/20 17:00 BP 106/67 12/21/20 17:00 Pulse Ox 72 L 12/21/20 17:00 12/21/20 12/21/20 12/21/20 06:59 14:59 22:59 Intake Total 50 / 330 360 / 360 Balance 50 / 330 360 / 360 Physical Exam Narrative: EXAM NARRATIVE: GEN: Nonverbal, cooperative off oxygen and restraints, assists with position changes, appears comfortable HEENT: Blind in both eyes CVS: Holosystolic murmur, unchanged RS: CTA B/L Abd: Soft, nt/nd , bs+ Data : 12/18/20 05:25 12/18/20 05:25 Micro: Microbiology 12/15/20 21:20 Blood Culture - Final Blood NO GROWTH AFTER 5 DAYS 12/15/20 21:26 Blood Culture - Final Blood NO GROWTH AFTER 5 DAYS A&P Assessment and plan (1) Acute respiratory failure with hypoxia: Status: Acute (2) Community acquired pneumonia: Status: Acute (3) Chronic respiratory failure with hypoxia: Status: Acute Acute philip chronic espiratory failure with hypoxia due to right lower lobe pneumonia s/p Zosyn and azithromycin x 5 days for treatment of CAP bacterial ag and urine legionella ag not obtained as unable to get urine specimen, patient could not be straight cath as it makes him extremely agitated MRSA PCR negative influenza PCR negative Covid PCR negative Blood culture negative to date Duoneb q6hr prn D-dimer elevated at 2.42, unlikely that he will be able to stay still to complete a CTA PE study. Lower extremity Doppler without evidence of DVT Elevated BNP in setting of Cor pulmonale/severe pulmonary htn/VSD Echocardiogram with severe pulmonary HTN with RVSP>100 , Tricuspid stenosis and mild pulmonic stenosis, Right ventricle is hypokinetic and dilated Extensive GOC discussion today with guardian/sister Katie as detailed above in interval history. Does not wish to restrain and sedate patient for the exclusive purpose of keeping on supplemental 02. d/c restraints, d/c haldol, d/c supplemental 02 as making patient agitated, added po zyprexa prn Patient pulled iv line accidentally, will not re insert to allow for comfort Comfortable on RA with 02 sat 75%, no noted respiratory distress, likely points to chronicity of hypoxia. prn morphine and ativan added in case of development of air hunger No aggressive measures, no escalation of care If survives current admission, transition back to assisted with assistance of hospice services for palliative management. DVT ppx: discontinue to allow for comfort DNR/DNI Attestations Medical Necessity Statement*: transition to palliative measures Coding Level of Care Code Acute Sales Vendor for [employer] Diagnoses Acute respiratory failure with hypoxia J96.01 Community acquired pneumonia J18.9 Chronic respiratory failure with hypoxia J96.11
[2020-12-21] MEDS: trazodone 150 mg Tablet 300 MG PO (20:49)
[2020-12-22 00:01] VITALS: BP 109/70; PULSE 86; RESP 18; TEMP 37; O2SAT 87
[2020-12-22 04:06] VITALS: BP 137/82; PULSE 87; RESP 19; TEMP 36.4; O2SAT 82
[2020-12-22] MEDS: levothyroxine 88 mcg Tablet PO (06:31)
[2020-12-22 07:00] VITALS: BP 108/71; PULSE 87; RESP 16; TEMP 36.4; O2SAT 82
[2020-12-22 08:48] VITALS: PULSE 79; RESP 18; O2SAT 81
--- NOTE | 2020-12-22 09:40 | PM.DCS ---
Discharge Providers Date of Admission: 12/16/20 00:07 Date of Discharge: December 22, 2020 Attending Provider at Admission: Katelyn Walton Attending Provider at Discharge: Richmond Fan MD Primary Care Provider: Jovanni Villalobos DO Diagnoses at Discharge Discharge Diagnosis (1) Acute respiratory failure with hypoxia: Status: Acute (2) Community acquired pneumonia: Status: Acute (3) Chronic respiratory failure with hypoxia: Status: Acute Reason for Visit Reason for Visit: FEVER Hospital Course Hospital Course John is a 50-year-old male with Down syndrome who presented with hypoxia. Evidence of significant right-sided pneumonia was present. He was initiated on Zosyn and had significant clinical improvement. Extensive discussions occurred with family regarding goals of treatment as his oxygen level remained persistently low on room air and he was not compliant with oxygen treatment. Please see notes of attending physician Dr. Bolton regarding this. Ultimately it was decided to transition him to hospice at his halfway and allow discharge home at the halfway where he will be most comfortable. Oxygen saturation was 81% with no evidence of labored breathing. I suspect his hypoxia has been going on for quite some time and is secondary to VSD and pulmonary hypertension. Physical Exam Narrative: EXAM NARRATIVE: General exam is no apparent distress Cardiovascular regular rate and rhythm with a 3/6 systolic murmur heard best left sternal border Lungs clear no wheezing or crackles Abdomen is soft with positive bowel sounds Extremities no cyanosis clubbing or edema Discharge Data Data Completed and Pending: Completed Studies During Hospitalization Category Date Time Status XR chest 1V gabriel ble [id number] Urgent Exams 12/15/20 21:03 Completed CV echo complete* [id number] Routine Ultrasound 12/17/20 05:00 [place] [id number] Routin e Ultrasound 12/17/20 05:00 Completed Vitals: Last Vital Signs Temp 97.6 F 12/22/20 07:00 Pulse 79 12/22/20 08:48 Resp 18 12/22/20 08:48 BP 108/71 12/22/20 07:00 Pulse Ox 81 L 12/22/20 08:48 Discharge Plan Discharge Patient Disposition: Home Condition: Stable Prescriptions: New levofloxacin 750 mg tablet 750 mg PO DAILY 2 Days Qty: 2 RF: 0 Continued levothyroxine 88 mcg capsule 88 mcg PO DAILY@0700 RF: 0 levocetirizine [Xyzal] 5 mg tablet 5 mg PO DAILY@0800 RF: 0 montelukast [Singulair] 10 mg tablet 10 mg PO DAILY@0800 RF: 0 fluticasone propionate [Allergy Relief (fluticasone)] 50 mcg/actuation spray,suspension 2 spray INTRANASAL DAILY@0800 RF: 0 simethicone 80 mg tablet,chewable 80 mg PO .COMPLEX PRN (Reason: EXCESS GAS) RF: 0 acetaminophen [Tylenol] 325 mg tablet 650 mg PO Q4H PRN (Reason: Pain) RF: 0 guaifenesin [Adult Tussin Chest Congestion] 100 mg/5 mL liquid 200 mg PO Q6H PRN (Reason: Cough) RF: 0 ibuprofen 200 mg tablet 200 mg PO Q6H PRN (Reason: Fever) RF: 0 lactulose 10 gram/15 mL solution 10 gm PO DAILY PRN (Reason: constipation) RF: 0 magnesium hydroxide [Milk of Magnesia] 400 mg/5 mL suspension 30 ml PO Q4H PRN (Reason: Constipation) RF: 0 albuterol sulfate [Ventolin HFA] 90 mcg/actuation HFA aerosol inhaler 1 puff INHALATION Q6H PRN (Reason: COUGH/WHEEZING) RF: 0 triamcinolone acetonide 0.1 % cream 1 applic TOPICAL BID PRN (Reason: UNKNOWN) RF: 0 betamethasone dipropionate 0.05 % cream 1 applic TOPICAL BID PRN (Reason: Rash) RF: 0 nystatin 100,000 unit/gram powder 1 applic TOPICAL DAILY PRN (Reason: Rash) RF: 0 docusate sodium [Colace] 100 mg capsule 100 mg PO BID@ RF: 0 polyethylene glycol 3350 [Miralax] 17 gram/dose powder 17 gm PO BID@799,1999 RF: 0 melatonin 3 mg capsule 3 mg PO DIRECTED Qty: 30 RF: 3 ketoconazole 2 % Shampoo See Rx Instructions .ROUTE .COMPLEX RF: 0 famotidine 40 mg Tablet 40 mg PO DAILY PRN (Reason: Indigestion) RF: 0 Fleet Enema 19-7 gram/118 mL Enema 118 ml IA DAILY PRN (Reason: Constipation) RF: 0 Debrox 6.5 % Drops 2 drp otic (ear) BID PRN (Reason: WAX BUILDUP) RF: 0 Celexa 40 mg tablet 40 mg PO DAILY@0800 RF: 0 trazodone 300 mg tablet 300 mg PO BEDTIME@2000 RF: 0 Seroquel XR 400 mg tablet extended release 24 hr 400 mg PO DAILY@1700 RF: 0 Discontinued quetiapine [Seroquel XR] 150 mg tablet extended release 24 hr 150 mg PO DAILY@0800 RF: 0 Discharge Orders: Discharge Order (Routine); Ordered 12/22/20 Ordered By: Richmond Fan Referrals: Reyna Dow FNP [Staff Physician] - 12/26/20 9:30 am Discharge Diet: Usual diet Discharge Activity: Resume usual activity Patient Instructions: Opioid Safety Activity Restrictions/Additional Instructions: Take all medicines as prescribed. Hospice referral Discharge Attestations Time Spent in Discharge Care*: greater than 30 min Quality Metrics Clinical Quality Measures During this hospital stay, did patient experience: None Coding Level of Care Code Acute Chg FW DC note Diagnoses Acute respiratory failure with hypoxia J96.01 Community acquired pneumonia J18.9 Chronic respiratory failure with hypoxia J96.11
[2020-12-22] MEDS: polyethylene glycol 3350 Pkt 17 gm PO (10:35)
[2020-12-22] MEDS: citalopram 20 mg Tablet 40 MG PO (10:36)
[2020-12-22] MEDS: quetiapine XR (24HR) 50 mg Tablet 150 MG PO (10:36)
[2020-12-22 11:00] VITALS: BP 108/66; PULSE 77; RESP 17; TEMP 36.4; O2SAT 90
[2020-12-22] MEDS: acetaminophen 325 mg Tablet 650 MG PO (13:35)
--- NOTE | 2020-12-22 15:15 | PC.NURSE ---
Late entry 1330: patient discharged at this time in the care of [facility] staff. Patient in stable condition.
[2020-12-22 15:16] VITALS: BP 108/66; PULSE 77; RESP 17; TEMP 36.4; O2SAT 90
== END 2020-12-22 13:30 | disposition hospice, home (50) | DRG 193 ==
LOC: ER 23:15 → MEDSURG 12-16 00:08
PROVIDERS: Student in an Organized Health Care Education/Training Program; Admitting Provider Hospitalist; Emergency Provider Emergency Medicine; PCP Internal Medicine; Visit Provider Internal Medicine
DX: J18.9 Pneumonia, unspecified organism (principal); J96.21 Acute and chronic respiratory failure with hypoxia; F73 Profound intellectual disabilities; Q21.0 Ventricular septal defect; H54.7 Unspecified visual loss; G30.9 Alzheimer's disease, unspecified; F02.80 Dementia in other diseases classified elsewhere, unspecified severity, without behavioral disturbance, psychotic disturbance, mood disturbance, and anxiety; I45.10 Unspecified right bundle-branch block; I27.20 Pulmonary hypertension, unspecified; I10 Essential (primary) hypertension; E03.9 Hypothyroidism, unspecified; Q90.9 Down syndrome, unspecified; Z91.19 Patient's noncompliance with other medical treatment and regimen
CPT/HCPCS: 36415; 36600; 71045; 80053; 80202; 81003; 82805; 83605; 83880; 84145; 84484; 85025; 85378; 85610; 87040; 87426; 87635; 87641; 87804; 92610; 93005; 93306; 93970; 94640; 96365; 96372; 99285; J1630; J1644; J1650; J2060; J2543; J3370; J3490; J7030; J7050; Q0144